=== PATIENT | male | born 1975 | race Two or more races ===

== ENCOUNTER 2018-03-11 10:30 | Inpatient (IN) | payer OTHER ==
[2018-03-11] MEDS ORDERED: HYDROmorphONE/DILAUDID 1 MG/ML INJ ONE ×2 (10:41→12:06)
[2018-03-11] MEDS ORDERED: HYDROmorphONE/DILAUDID 2 MG/ML INJ IVP ONE (10:42)
[2018-03-11] MEDS ORDERED: NS 1,000 ML IV ONE (10:42)
--- NOTE | 2018-03-11 10:46 | EDPHY ---
H & P Time Seen by Provider: 03/11/18 10:42 HPI/ROS: Chief complaint. Fall, full trauma activation HPI. 42-year-old male here by EMS after a fall of approximately 30 ft off a roof of 3 story building. Patient is unaware of exactly how he landed. There was apparently brief loss of consciousness. He complains of pain to his right arm and pain to his mid back. Denies headache currently. Denies neck pain. No chest pain or shortness of breath. No abdominal pain. Not ambulatory since the fall. When he wiggles the toes of his left foot he has some numbness or tingling. Otherwise denies injury to left arm or legs. ROS 10 systems were reviewed and negative with the exception of the elements mentioned in the history of present illness Past Medical/Surgical History: Healthy Social History: Single, nonsmoker, occasional alcohol Physical Exam: General Appearance: Alert well-developed male moderate distress vital signs are stable Eyes: Pupils equal and round no pallor or injection. ENT, no hemotympanum or Reyes sign. No bumps to the head. No oral pharyngeal or dental trauma Respiratory: There are no retractions, lungs are clear to auscultation. Cardiovascular: Regular rate and rhythm. Gastrointestinal: Abdomen is soft and nontender, no masses, bowel sounds normal. Neurological: Awake and alert, sensory and motor exams grossly normal. Skin: Warm and dry, no rashes. Musculoskeletal: Neck is nontender though restrained. Log-rolling the patient shows pain adjacent to approximately T10 on the left. No surface trauma. No lumbar spine pain. Extremities obvious deformity to the right humerus Psychiatric: Patient is oriented X 3, there is no agitation. Constitutional: Initial Vital Signs Heart Rate 85 03/11/18 10:30 Respiratory Rate 16 03/11/18 10:30 Blood Pressure 160/102 H 03/11/18 10:30 O2 Sat (%) 93 03/11/18 10:30 O2 Delivery Mode Nasal Cannula O2 (L/minute) 3 Allergies/Adverse Reactions: No Known Allergies Allergy (Unverified 03/11/18 10:48) Home Medications: Medication Instructions Recorded NK [No Known Home Meds] 03/11/18 Medical Decision Making - Diagnostics Imaging Results: Imaging Impressions Head CT 03/11/18 10:42 Impression: Head CT within normal limits. Final concordant results called to Dr. Rufino Walters at 11:13 AM General information for patients regarding this examination can be found at [facility]. If you have questions or comments about this report, please contact me at [phone] (hospital) or [phone] (cell). Abdomen CT 03/11/18 10:43 Impression:1. . Thoracic spine compression abnormalities at least 2 of which are acute and will be described in detail in the thoracic spine CT report. 2. Possible nondisplaced inferior right scapular fracture. 3. Normal thoracic aorta. 2. CT Scan of the Abdomen and Pelvis (With Contrast-extended study) 10:57 AM Clinical Indications: Trauma. Technique: 97 mL of Isovue 300 were given intravenously by machine power injection. Images are initially performed through the abdomen and pelvis during the arterial phase. Delayed venous phase imaging is performed through the abdomen and pelvis to assess for delayed bleeding. Multidetector helical CT imaging was performed from the diaphragm to the symphysis pubis. Dose reduction techniques were utilized. Findings: Abdomen: The liver and spleen are normal without evidence of laceration or subcapsular hematoma formation. The gallbladder and pancreas look normal. The kidneys do not show evidence for laceration, cortical contusion, or obstruction. There is no free air or free fluid. Bowel and mesentery look normal. Pelvis: The urinary bladder is unremarkable. No free fluid in the pelvis. Bowel loops are normal. Skeleton: There is likely chronic, bilateral L5 spondylolysis. The patient's lumbar spine will be described in detail on the lumbar spine CT report. Bone window evaluation: No acute fracture is identified. Impression: No acute posttraumatic abdominal or pelvic abnormality identified. Results discussed with Dr. Rufino Walters at 11:32 AM. Final results are concordant with the preliminary interpretation. General information for patients regarding this examination can be found at [facility]. If you have questions or comments about this report, please contact me at (hospital) or [phone] (cell). Chest CT 03/11/18 10:43 Impression:1. . Thoracic spine compression abnormalities at least 2 of which are acute and will be described in detail in the thoracic spine CT report. 2. Possible nondisplaced inferior right scapular fracture. 3. Normal thoracic aorta. 2. CT Scan of the Abdomen and Pelvis (With Contrast-extended study) 10:57 AM Clinical Indications: Trauma. Technique: 97 mL of Isovue 300 were given intravenously by machine power injection. Images are initially performed through the abdomen and pelvis during the arterial phase. Delayed venous phase imaging is performed through the abdomen and pelvis to assess for delayed bleeding. Multidetector helical CT imaging was performed from the diaphragm to the symphysis pubis. Dose reduction techniques were utilized. Findings: Abdomen: The liver and spleen are normal without evidence of laceration or subcapsular hematoma formation. The gallbladder and pancreas look normal. The kidneys do not show evidence for laceration, cortical contusion, or obstruction. There is no free air or free fluid. Bowel and mesentery look normal. Pelvis: The urinary bladder is unremarkable. No free fluid in the pelvis. Bowel loops are normal. Skeleton: There is likely chronic, bilateral L5 spondylolysis. The patient's lumbar spine will be described in detail on the lumbar spine CT report. Bone window evaluation: No acute fracture is identified. Impression: No acute posttraumatic abdominal or pelvic abnormality identified. Results discussed with Dr. Rufino Walters at 11:32 AM. Final results are concordant with the preliminary interpretation. General information for patients regarding this examination can be found at [email or web address]. If you have questions or comments about this report, please contact me at [phone](hospital) or [phone] (cell). Lumbar Spine CT 03/11/18 10:43 Impression: Unstable burst fracture of T5. Acute mild compression of T4. Several other mild compressions of unknown age. Consider MRI of the thoracic spine for further evaluation. 2. CT Lumbar Spine Without Contrast, 10:57 AM History: Fall 30 foot from roof with pain Technique: Ultrathin noncontrast helical [address] images through the lumbar spine from T12 to S1. Soft tissue and bone window evaluation is performed. Sagittal and coronal reconstructions are obtained utilizing soft tissue and bone window computer analysis modes. Dose reduction techniques were utilized. Findings: Alignment is anatomic.No acute lumbar fracture is identified. There is probably chronic bilateral L5 spondylolysis without evidence of spondylolisthesis. There is a vacuum phenomenon and diffuse disk bulging at L5- S1. The disk bulging at least touches both L5 roots in their respective foramina. There is no paraspinal hematoma. Posterior elements are intact and normally aligned at all levels. The thoracolumbar junction is normally aligned. Impression: 1. Likely chronic bilateral L5 spondylolysis without spondylolisthesis associated with bilateral L5-S1 foraminal stenosis related to disk bulging. If it is clinically important to exclude an acute process, then lumbar MRI could be performed. If there is concern for instability, at some point, lateral lumbar flexion extension views might be considered. 2. No clearly acute lumbar posttraumatic pathology identified. Final concordant results discussed with Dr. Rufino Walters at 11:30 AM. General information for patients regarding this examination can be found at [facility]. If you have questions or comments about this report, please contact me at (hospital) or [phone] (cell). Thoracic Spine CT 03/11/18 10:43 Impression: Unstable burst fracture of T5. Acute mild compression of T4. Several other mild compressions of unknown age. Consider MRI of the thoracic spine for further evaluation. 2. CT Lumbar Spine Without Contrast, 10:57 AM History: Fall 30 foot from roof with pain Technique: Ultrathin noncontrast helical [address] images through the lumbar spine from T12 to S1. Soft tissue and bone window evaluation is performed. Sagittal and coronal reconstructions are obtained utilizing soft tissue and bone window computer analysis modes. Dose reduction techniques were utilized. Findings: Alignment is anatomic.No acute lumbar fracture is identified. There is probably chronic bilateral L5 spondylolysis without evidence of spondylolisthesis. There is a vacuum phenomenon and diffuse disk bulging at L5- S1. The disk bulging at least touches both L5 roots in their respective foramina. There is no paraspinal hematoma. Posterior elements are intact and normally aligned at all levels. The thoracolumbar junction is normally aligned. Impression: 1. Likely chronic bilateral L5 spondylolysis without spondylolisthesis associated with bilateral L5-S1 foraminal stenosis related to disk bulging. If it is clinically important to exclude an acute process, then lumbar MRI could be performed. If there is concern for instability, at some point, lateral lumbar flexion extension views might be considered. 2. No clearly acute lumbar posttraumatic pathology identified. Final concordant results discussed with Dr. Rufino Walters at 11:30 AM. General information for patients regarding this examination can be found at [facility]. If you have questions or comments about this report, please contact me at ([facility]) or [phone] (cell). Humerus X-Ray 03/11/18 10:44 Impression: Displaced angulated mid humeral diaphyseal fracture. X-ray right humerus shows a displaced and angulated right humerus fracture CT head reviewed by me and discussed with Dr. Briggs as well as CT chest and abdomen show no intrathoracic or intra-abdominal injury. Patient has compression fractures T2, 3, 4 and then on unstable burst fracture with retropulsion of fragments at T5 No intracranial intrathoracic or intra-abdominal trauma Procedures: IV normal saline, monitor. Dilaudid for pain After further Dilaudid traction is applied to the shoulder and the elbow and the fracture is reduced to more normal anatomic position. Distal motor vascular sensitivity is intact after the procedure Patient is placed in a coaptation splint. Post splint application inspected by me shows good anatomic position and distal motor vascular sensitivity to be intact Cresencio brace is contacted and they come to place the patient in a brace ED Course/Re-evaluation: I consulted and discussed case with Dr. Aguilar for Orthopedics I have consulted discussed the case with Dr. Walker for Neurosurgery Dr. Mota has been present and case is continuing to be discussed with him. Patient remained stable on re-evaluation at 11:45 a.m.. The patient and I discussed imaging lab results. We discussed treatment plan including recommendation for admission. He expresses understanding and agreement foreign language interpreter is Raisa Differential Diagnosis: 30 ft fall with concern for intracranial, spine, thoracic, intra-abdominal injuries. Patient has a displaced fracture of the midshaft humerus. He has multiple compression fractures and a burst fracture of T5 Critical Care Time: Critical care time exclusive procedures 45 min - Data Points Laboratory Results: Laboratory Results 03/11/18 11:10 03/11/18 11:10 03/11/18 03/11/18 03/11/18 11:10 11:10 11:10 WBC 11.69 10^3/uL H 10^3/uL (3.80-9.50) RBC 4.87 10^6/uL 10^6/uL (4.40-6.38) Hgb 14.5 g/dL g/dL (13.7-17.5) Hct 43.0 % % (40.0-51.0) MCV 88.3 fL fL (81.5-99.8) MCH 29.8 pg pg (27.9-34.1) MCHC 33.7 g/dL g/dL (32.4-36.7) RDW 12.9 % % (11.5-15.2) Plt Count 263 10^3/uL 10^3/uL (150-400) MPV 9.5 fL fL (8.7-11.7) Neut % (Auto) 81.1 % H % (39.3-74.2) Lymph % (Auto) 10.2 % L % (15.0-45.0) [place] % (Auto) 5.9 % % (4.5-13.0) Eos % (Auto) 0.4 % L % (0.6-7.6) Baso % (Auto) 0.3 % % (0.3-1.7) Nucleat RBC Rel Count 0.0 % % (0.0-0.2) Absolute Neuts (auto) 9.47 10^3/uL H 10^3/uL (1.70-6.50) Absolute Lymphs (auto) 1.19 10^3/uL 10^3/uL (1.00-3.00) Absolute Monos (auto) 0.69 10^3/uL 10^3/uL (0.30-0.80) Absolute Eos (auto) 0.05 10^3/uL 10^3/uL (0.03-0.40) Absolute Basos (auto) 0.04 10^3/uL 10^3/uL (0.02-0.10) Absolute Nucleated RBC 0.00 10^3/uL 10^3/uL (0-0.01) Immature Gran % 2.1 % H % (0.0-1.1) Immature Gran # 0.25 10^3/uL H 10^3/uL (0.00-0.10) PT 14.9 SEC SEC (12.0-15.0) INR 1.15 (0.83-1.16) APTT 24.6 SEC SEC (23.0-38.0) Sodium 136 mEq/L mEq/L (135-145) Potassium 3.7 mEq/L mEq/L (3.3-5.0) Chloride 104 mEq/L mEq/L (97-110) Carbon Dioxide 23 mEq/l mEq/l (22-31) Anion Gap 9 mEq/L mEq/L (6-14) BUN 23 mg/dL mg/dL (7-23) Creatinine 1.1 mg/dL mg/dL (0.7-1.3) Estimated GFR > 60 Glucose 140 mg/dL H mg/dL (70-100) Calcium 8.9 mg/dL mg/dL (8.5-10.4) Medications Given: Discontinued Medications Hydromorphone HCl (Dilaudid) 1 mg IVP EDNOW ONE Stop: 03/11/18 10:43 Last Admin: 03/11/18 10:45 Dose: 1 mg Hydromorphone HCl (Dilaudid) 1 mg IVP EDNOW ONE Stop: 03/11/18 12:09 Last Admin: 03/11/18 12:08 Dose: 1 mg Hydromorphone HCl (Dilaudid) 1 mg IVP EDNOW ONE Stop: 03/11/18 13:35 Last Admin: 03/11/18 13:35 Dose: 1 mg Sodium Chloride (Ns) 1,000 mls @ 0 mls/hr IV ONCE ONE; Wide Open PRN Reason: Protocol Stop: 03/11/18 10:43 Last Admin: 03/11/18 11:10 Dose: 1,000 mls Departure - Departure Disposition: [facility] Acute Clinical Impression: Unstable burst fracture of T5 vertebra Qualifiers: Encounter type: initial encounter Fracture type: closed Qualified Code(s): S22.052A - Unstable burst fracture of T5-T6 vertebra, initial encounter for closed fracture Right humeral fracture Qualifiers: Encounter type: initial encounter Humerus Location: shaft Fracture morphology: oblique Fracture alignment: displaced Condition: Fair
[2018-03-11 11:25] LABS: PLATELET COUNT 263 10^3/uL (150-400)
[2018-03-11 11:42] LABS: INR 1.15 (0.83-1.16); PROTIME(PATIENT) 14.9 SEC (12.0-15.0)
[2018-03-11] MEDS ORDERED: ONDANSETRON DISINTEGRATING 4 MG TAB PO PRN (12:03)
[2018-03-11] MEDS ORDERED: HYDROmorphONE/DILAUDID 1 MG/ML INJ IVP ONE ×2 (12:08→13:34)
[2018-03-11] MEDS ORDERED: LR 1,000 ML IV SCH (12:30)
--- NOTE | 2018-03-11 12:43 | GHP ---
DATE OF ADMISSION: 03/11/2018 CHIEF COMPLAINT: 1. Back pain. 2. Right upper extremity pain. 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 PAST MEDICAL HISTORY: None. Denies asthma, heart trouble, diabetes, epilepsy, or rheumatic fever. ALLERGIES: None. CURRENT MEDICATIONS: None. SOCIAL HISTORY: Nonsmoker. Rare alcohol use. PAST SURGICAL HISTORY: Denies previous surgery. The patient is brought in with a C-collar in place, which was removed by Dr. Rufino Walters in the [facility] on clinical clearance, and a splint on the right arm, as well as a backboard. Backboard w as removed. The patient eventually rolled up on his side, and palpation of his back revealed tendern ess in the lower thoracic spine area. The right arm had obvious deviation consistent with a humerus fracture. PHYSICAL EXAM: HEENT: PERRL, EOMI. Sclerae nonicteric. Pharynx clear. No sign of facial trauma. NECK: Nontender. No supraclavicular, nor axillary crepitus. Clavicles are intact. EXTREMITIES: L eft upper extremity is unremarkable. Right upper extremity shows a midshaft humerus fracture with de viation of the arm. Radial pulse is intact. Sensation and hand strength are intact. We recommend a splint be placed and Orthopedic Surgery consulted. LUNGS: Clear. HEART: Normal S1 and S2, withou t murmur. ABDOMEN: Soft, benign. NEUROMUSCULAR: Palpation of the posterior spinous elements as pr eviously described. Pelvis is stable to compression. Lower extremities are atraumatic. Sensation a nd motor in the feet are normal. Plain films of the right upper extremity show complete distraction of the fracture area, with a clean midshaft humeral fracture. CT scan of the head, chest, and abdomen were done. The neck was not done. Head was normal. Chest s hows a burst fracture at the T5 level, with some compression elements in 3 and 4. No pneumohemothora x or rib fracture mentioned. Abdomen is benign. ASSESSMENT: A 30-foot fall, with T5 burst fracture. Neurologically intact. There is a question of a nondisplaced inferior right scapular fracture, although the patient is not very tender there. Righ t humerus fracture. PLAN: Neurosurgery has been contacted, and they recommended an MRI of the spine, which was ordered. Orthopedics understand the nature of the injury, have recommended a splint, and will see the patient in regard to definitive repair. We will admit him to the hospital for pain control. /[id number]/MODL
--- NOTE | 2018-03-11 16:20 | GCON ---
DATE OF CONSULTATION: 03/11/2018 REASON FOR CONSULTATION: Status post fall with back pain. HOSPITAL COURSE, HISTORY, AND MAJOR MEDICAL FINDINGS: Mr. 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 He states that per his coworkers he was found unconscious and was brought to the emergency room for further evaluation. Upon examining the patient in the emergency room, he is awake and alert. He was complaining of some numbness and pain in his legs when he first came in; however, this improved after the patient went to CT scan. He denies any loss of bowel or bladder control or any weakness in his legs or his left arm. He does have a splint on his right arm and was found to have a humeral fracture. REVIEW OF SYSTEMS: Review of systems is negative other than what is stated in the HPI. Please see for pertinent negatives and pertinent positives. PAST MEDICAL HISTORY: Negative. PAST SURGICAL HISTORY: None. HOME MEDICATIONS: None including no vitamins. ALLERGIES: No known drug allergies. FAMILY HISTORY: The patient has a family history of lung cancer. He does state that his family members that have developed lung cancer were smokers. SOCIAL HISTORY: The patient does not smoke, drink any alcohol, or use illicit drugs. PHYSICAL EXAM: VITALS: BP 106/102, heart rate is 85, respiratory rate is 16, he is 93% on 3 L nasal cannula. The patient is in no acute distress. He is alert and oriented x3. He answers all questions appropriately in Slovenian through the filter tender jelly. His affect appropriate for the current situation. His cranial nerves 2-12 are grossly intact. EOMI and PERRLA. The patient is a 5/5 in his left upper extremity and in his deltoids, triceps, biceps, wrist flexors , extensors, interossei, intrinsic uniform force captain. On the patient's right upper extremity , his uniform force captain is a 5/5. Other range of motion testing is not done given the patient's fracture. The patient is a 5/5 in his bilateral lower extremities including his iliopsoas, hamstrings, quadriceps, plantar flexion, dorsiflexion, and EHL. Sensation is intact in bilateral upper and bilateral lower extremities. Reflexes: Negative clonus. Negative Babinski bilaterally. DIAGNOSTIC REVIEW: The patient underwent a CT of his thoracic and lumbar spine which demonstrated a chronic bilateral L5 spondylosis. His thoracic spine demonstrated a burst/compression fracture of T5 with acute compression of T4. ASSESSMENT AND PLAN: Mr. Tian Blum is a 42-year-old gentleman who fell approximately 30 feet from a roof. He is neurologically intact, though he did have some numbness upon presentation. He is found have a T5 burst/compression fracture and a T4 compression fracture. A thoracic MRI has already been ordered for the patient. He fell approximately 30 feet. He is being admitted to Trauma and we will continue to follow. A PERSONAL INJURY LEGAL ASSISTANT brace has been ordered. We will follow up with the thoracic MRI. If there is any change in neurologic or motor exam, please notify Neurosurgery. The patient was seen both by myself and Dr. Parisi. NEUROSURGERY STAFF I have seen and evaluated the patient. I agree with the above assessment and plan. This fracture involves primarily the anterior column. There is perhaps some mild ligamentous strain which is not surprising. this should heal well in a PERSONAL INJURY LEGAL ASSISTANT brace. He should wear this when he is above 45 degrees or out of bed. He does not need to wear it while in bed. We will get some thoracic xrays in the brace to confirm stability before he is discharged. I explained this to the patient and family. Ailin /[id number]/MODL MTDD
--- NOTE | 2018-03-11 16:40 | ASMTCMCOM ---
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 Pt has a T5 burst fracture, a right humerus fracture and possibly a displaced inferior right scapular fracture. PT/OT/DISABILITY MANAGER and an in-pt rehab eval have been ordered. CM to follow. D/C Plan: TBD Date Signed: 03/11/2018 04:17 PM Electronically Signed By:Gabrielle Lopez
[2018-03-11] MEDS ORDERED: IOPAMIDOL (ISOVUE-300) 100 ML BTL ONE (17:49)
[2018-03-11] MEDS: OXYCODONE/APAP 5/325 TAB PO PRN (23:14)
--- NOTE | 2018-03-12 07:51 | TRAUMAPNT ---
Trauma Tertiary Progress Note Assessment/Plan: no overnight issues. pain controlled. no SEQUEIRA. no visual changes. no neck pain. no extremity numbness or tingling. no chest or abd c/o. hungry. lives at home with roommates. avss. comfortable. HEENT unremarkable. neck nontender. heart reg. lungs clear. abd nontender. RUE coaptation splint intact - approp hand swelling, neuro intact, +radial pulse. pelvis nontender. normal BLE. s/p fall, T5 burst, R humerus fx. doing well. neuro intact. awaiting Manufacturing Process Technician for INDUCTOR TESTER brace adjustment. non-op r humerus per ortho - will discuss care plan with them. PT/OT. anticipate dc tomorrow. Objective: Vital Signs Temp Pulse Resp BP Pulse Ox 36.9 C 77 16 136/74 H 88 L 03/12/18 04:00 03/12/18 04:00 03/12/18 04:00 03/12/18 04:00 03/12/18 04:00 03/11/18 03/12/18 03/13/18 05:59 05:59 05:59 Intake Total 1000 Output Total 440 Balance 560 PT 14.9 SEC (12.0-15.0) 03/11/18 11:10 INR 1.15 (0.83-1.16) 03/11/18 11:10
--- NOTE | 2018-03-12 09:09 | NEUSURGPN ---
Assessment/Plan: A: 42 yo M s/p 30 ft fall with T5 burst/comp fx, less significant compression fx at T1, 2, 3, 4, 9, 11. P: -MRI T spine done and reviewed by Dr. Parisi. No significant cord compression. We will plan to treat this fx conservatively with a brace. -Brace to be readjusted by pattern hanger today -Standing xrays in brace to be done once brace re-fit -PT/OT -Pain management -D/w Dr aPrisi -Call NS with any issues or neuro changes Subjective: Pt resting in bed, has pain with movement. Brace wasn't fitting well. Objective: AAOx3 NAD VSS MAEx4 Motor 5/5 BLE +LT Urinary Catheter in Place: No - Physician Discussed Patient with : Ailin Neurosurgery Physical Exam - Vitals, I&O, Labs I and O 03/11/18 03/12/18 03/13/18 05:59 05:59 05:59 Intake Total 1000 Output Total 440 Balance 560 Weight 90.718 kg Intake: Oral (ml) 0 IV Infused (ml) 1000 Output: Urine (ml) 440 Urinal 440 Other: Intake Quantity Yes Sufficient Vital Signs Temp Pulse Resp BP Pulse Ox 37.1 C 97 16 146/91 H 93 03/12/18 08:00 03/12/18 08:00 03/12/18 08:00 03/12/18 08:00 03/12/18 08:00 ICD10 Worksheet Patient Problems: Problems Problem Status Onset Right humeral fracture Acute Unstable burst fracture of T5 vertebra Acute
--- NOTE | 2018-03-12 11:29 | GCON ---
ORTHOPEDIC CONSULTATION CHIEF COMPLAINT: Back pain and right upper extremity pain. HISTORY OF PRESENT ILLNESS: A 42-year-old Georgian-speaking male (a basket person was present for the interview with the patient). 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 There was allegedly a brief period of loss of consciousness. He denies headache or neck pain. Denies chest pain, shortness of breath. He has not ambulated since the fall. However, he does not complain of any numbness, tingling, or weakness in the arms or legs. REVIEW OF SYSTEMS: A 10-point review of systems is reviewed and negative except for HPI. PAST MEDICAL HISTORY: None. PAST SURGICAL HISTORY: Noncontributory and none. ALLERGIES: None. MEDICATIONS: None. SOCIAL HISTORY: Denies tobacco use. 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 He is awake, conversive, and in no acute distress. He is not complaining of any pain. He has sensation intact to light touch to the bilateral upper extremities to axillary, radial, ulnar, median nerves. Motor intact to AIN, PIN and interosseous nerves. He has brisk cap refill and 2+ radial pulse. Compartments are soft and compressible. LOWER EXTREMITIES: He has sensation intact to light touch in L4 to S1 and motor intact to EHL, FHL, tibialis anterior, and gastroc soleus. IMAGING: There is a transverse displaced humeral shaft fracture at the junction of the distal 1/3. This is in significant better alignment after closed reduction with application of a coaptation splint. ASSESSMENT AND PLAN: A 42-year-old male with a T5 burst fracture and T4 compression fracture that does not appear to require surgical stabilization as far as the right humerus. This can be initially treated nonoperatively. He will follow up as an outpatient next week for repeat x-rays. We did discuss the possibility for high risk of nonunion given the transverse fracture pattern and possibly higher degree of instability. The patient verbalized understanding of this. He will follow up with Dr. Chester on Wednesday of next week to discuss continued nonoperative management versus operative fixation. He should continue to use the Kerlix around his wrist and neck to help elevate the arm, but continue to keep his elbow free of supportive devices so as to allow gravity to help continue to reduce his fracture site. The patient understands and agrees with this treatment plan. All questions were answered. /[id number]/MODL MTDD
--- NOTE | 2018-03-12 12:04 | PDMN ---
Medical Necessity Medical necessity: Pt meets inpt criteria per MD order and Musculoskeletal Disease GRG. 42 y/o admitted w/ multiple injuries after about 30 ft fall from building. Injuries include T5 burst/comp fx, T1,2,3,4,9,11 comp fx's, and R humerus fx. Neurosurg and ortho consults, brace fitting pending, PT/OT evals pending, pain management. Anticipate>2 MN for ongoing eval/management of above.
[2018-03-12] MEDS: OXYCODONE/APAP 5/325 TAB PO PRN (12:22)
[2018-03-13] MEDS: OXYCODONE/APAP 5/325 TAB PO PRN ×2 (08:33→17:07)
--- NOTE | 2018-03-13 10:33 | NEUSURGPN ---
Assessment/Plan: A: 42 yo M s/p 30 ft fall with T5 burst/comp fx, less significant compression fx at T1, 2, 3, 4, 9, 11. P: -MRI T spine done and reviewed by Dr. Parisi. No significant cord compression. We will plan to treat this fx conservatively with a brace. -Brace has been readjusted by sheet rock hanger and fitting better -Standing xrays in brace show stable fracture -PT/OT -Pain management -OK for DC to home today from NS standpoint -Needs outpatient follow up in 4 weeks with thoracic spine xrays w/ Dr Parisi. Entered in follow up tab. -ash handler assisted with pt eval today -Call NS with any issues or neuro changes Subjective: Pt resting in chair, states brace fitting much better Objective: AAOx3 NAD VSS MAEx4 R arm in sling Brace on Motor 09/04 BLE +LT Urinary Catheter in Place: No Neurosurgery Physical Exam - Vitals, I&O, Labs I and O 03/12/18 03/13/18 03/14/18 05:59 05:59 05:59 Intake Total 1000 Output Total 440 Balance 560 Weight 90.718 kg Intake: Oral (ml) 0 IV Infused (ml) 1000 Output: Urine (ml) 440 Urinal 440 Other: Intake Quantity Yes Yes Sufficient Vital Signs Temp Pulse Resp BP Pulse Ox 37.1 C 81 16 137/89 H 93 03/13/18 07:38 03/13/18 07:38 03/13/18 07:38 03/13/18 07:38 03/13/18 07:38 ICD10 Worksheet Patient Problems: Problems Problem Status Onset Right humeral fracture Acute Unstable burst fracture of T5 vertebra Acute
--- NOTE | 2018-03-13 10:54 | TRAUMAPN ---
Trauma Progress Note Assessment/Plan: 42 yo s/p fall from room with T5 burst and fx T1,2,3,4,9,11 R humerus fracture Brace is fitting well. follow up with Dr. Parisi. Needs outpatient follow up in 4 weeks with thoracic spine xrays w/ Dr Parisi. R humerus fracture - f/u [address] Aguilar Will need assistance with brace S: Pain is controlled. Brace feels much better Objective: Vital Signs Temp Pulse Resp BP Pulse Ox 37.1 C 81 16 137/89 H 93 03/13/18 07:38 03/13/18 07:38 03/13/18 07:38 03/13/18 07:38 03/13/18 07:38 03/12/18 03/13/18 03/14/18 05:59 05:59 05:59 Intake Total 1000 Output Total 440 Balance 560 PT 14.9 SEC (12.0-15.0) 03/11/18 11:10 INR 1.15 (0.83-1.16) 03/11/18 11:10 Physical Exam - Physical Exam General Appearance: WD/WN, alert, no apparent distress EENT: PERRL/EOMI, normal ENT inspection, No scleral icterus (R), No scleral icterus (L), No hearing deficit Respiratory: lungs clear, normal breath sounds Cardiac/Chest: regular rate, rhythm Abdomen: normal bowel sounds, non-tender, soft Back: Other (In brace) Skin: normal color, warm/dry Extremities: other (R arm in brace. Hand swollen) Neuro/Psych: no motor/sensory deficits, alert, normal mood/affect
--- NOTE | 2018-03-13 13:16 | GDS ---
Reason for Admission: This is a 42-year-old male, Yakut-speaking, who was admitted to trauma after a 30 foot fall off roof off a 3 story building. PRIMARY DIAGNOSIS: T5 burst fracture. SECONDARY DIAGNOSES: Right humerus fracture and multiple thoracic spine compression fractures. HOSPITAL COURSE: He was found to have an unstable burst fracture of T5, multiple compression fractures of the thoracic spine and a displaced right humeral fracture. He was fitted with a METAL MIXER brace and instructed to wear this at anytime he is above 45 degrees or out of bed. The right humerus is splinted with plan to follow up with Orthopedics for decision of surgery versus casting next week. The patient requested a letter to be written for his son to obtain a visa to the [place] for assistance during recovery, this has been provided to him. CONDITION ON DISCHARGE: 1. Able to ambulate with assistance. 2. Pain is controlled with Percocet. 3. Diet is tolerated well. DISCHARGE MEDICATIONS: Percocet 5/325 1-2 tabs p.o. q.4 hours, #30. FOLLOWUP: He will follow up with Neurosurgery, Dr. Parisi, in 4 weeks for a repeat thoracic spine film. He will follow up with Orthopedics, Dr. Aguilar, next week for repeat humerus x-rays and casting versus surgical intervention. /[id number]/MODL MTDD
--- NOTE | 2018-03-13 13:41 | ASMTLACE ---
[facility] Length of stay for Answers: 2 days current admission Acuity / Level of Answers: Yes Care: Did the patient have an inpatient admission? # of Emergency department Answers: 1-2 visits in the last 6 months Score: 6 Date Signed: 03/13/2018 01:40 PM Electronically Signed By:Satrla Bell RN
--- NOTE | 2018-03-13 13:43 | ASMTCMCOM ---
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 CM available for any changes. DC Plan: Independent Date Signed: 03/13/2018 01:42 PM Electronically Signed By:Starla Bell RN
[2018-03-13 16:14] VITALS: BP 141/91
== END 2018-03-13 17:58 | disposition home or self-care (01) | DRG 552 ==
LOC: EDBD 10:30 → F3E 15:25
PROVIDERS: ADMIT Surgery; ATTEND Surgery
PROC: 0PS Upper Bones, Reposition (ICD-10-PCS; principal; 2018-03-11)
DX: S22.052A Unstable burst fracture of T5-T6 vertebra, initial encounter for closed fracture (principal); S42.301A Unspecified fracture of shaft of humerus, right arm, initial encounter for closed fracture; S22.049A Unspecified fracture of fourth thoracic vertebra, initial encounter for closed fracture; S06.9X9A Unspecified intracranial injury with loss of consciousness of unspecified duration, initial encounter; W13.9XXA Fall from, out of or through building, not otherwise specified, initial encounter; Y99.0 Civilian activity done for income or pay; Y93.H3 Activity, building and construction; Y92.69 Other specified industrial and construction area as the place of occurrence of the external cause
CPT/HCPCS: 92523-GN; 96374; 97116-GP; 97161-GP; 97165-GO; J1170; Q9967